=== PATIENT | male | born 1950 | race Caucasian/White ===

== ENCOUNTER → 2016-10-25 | Outpatient (CLI) | payer BC ==
[~2016-10-25] MED LIST: CHOL100027 PO; DOXY40CA PO
== END | disposition home or self-care (01) ==
LOC: C.LABBC 07:31
PROVIDERS: ATTEND Urology
DX: C61 Malignant neoplasm of prostate (principal)

== ENCOUNTER → 2017-05-03 | Outpatient (CLI) | payer BC | END | disposition home or self-care (01) | LOC: C.LABBC 07:38 | PROVIDERS: ATTEND Urology | DX: C61 Malignant neoplasm of prostate (principal) ==

== ENCOUNTER → 2017-10-30 | Outpatient (CLI) | payer OTHER | END | disposition home or self-care (01) | LOC: C.LABBC 07:26 | PROVIDERS: ATTEND Urology | DX: C61 Malignant neoplasm of prostate (principal) ==

== ENCOUNTER 2018-09-11 07:21 | Observation (INO) ==
[2018-09-11] MEDS ORDERED: fentaNYL citrate 100 MCG/2 ML VIAL ONE ×2 (08:41→09:40)
[2018-09-11] MEDS ORDERED: MIDAZOLAM HCL 5 MG/ML 1 ML VIAL ONE ×2 (08:41→09:45)
--- NOTE | 2018-09-11 08:41 | History & Physical Bridge Note ---
Date of Service September 11, 2018 History & Physical Bridge Note I have examined the patient, reviewed the History & Physical and in the interval since the performance of the History & Physical I have noted the following changes of clinical significance: no changes noted. Still in AFL
--- NOTE | 2018-09-11 08:42 | Pre Anesthesia Assessment ---
Date of Service September 11, 2018 Pre Sedation Assessment Vital Signs Temp Pulse Resp BP Pulse Ox 09/11/18 08:25 36.7 C 116 H 16 125/102 H 98 Cardiovascular + tachycardic Respiratory + respiratory effort normal Pre-Sedation Airway Assessment Smoking Status: Never smoker Hx Sleep Apnea: No Hx Difficult Intubation: No Short, Thick Neck: No Thyromental Distance: > or= 3.5 Finger Breadths Oral Cavity: + WNL Mallampati Class: III ASA: ASA3 NPO Status Date of Last Intake of Fluids: 09/10/18 Time of Last Intake of Fluids: 19:00 Date of Last Intake of Solid Food: 09/10/18 Time of Last Intake of Solid Foods: 19:00 Procedure Planning Contraindications for Sedation: none Current Medications Reviewed: Yes Notes The planned sedation has been discussed with the patient. Informed Consent was obtained. I have identified the patient, determined the appropriateness of sedation and have assessed the patient immediately prior to the procedure. All medicine(s) and interventions are by my order.
[2018-09-11] MEDS ORDERED: HEPARIN SOD (PORCINE) 1000 UNIT/ML 10 ML VIAL ONE (08:54)
--- NOTE | 2018-09-11 12:05 | Post Operative Brief Note ---
Cardiology Brief Post Op Date of Surgery September 11, 2018 Pre & Post Diagnosis Operation Date: 09/11/18 09:00 <No data on this case meets the specified criteria> Procedure Ablation of typical right atrial flutter using right femoral vein. Conscious sedation Return to sinus rhythm from atrial flutter No immediate complications Catalytic Converter Operator Saul Jenkins MD Integrated Logistics Programs Director none Estimated Blood Loss 10 Findings Consistent with Post-Op Diagnosis Complications none Disposition Accompanied Patient To Recovery: No Disposition: PCU Overlapping Procedure I was immediately available: during the entire case.
--- NOTE | 2018-09-23 13:49 | Discharge Summary ---
Date of Service September 23, 2018 Admission HPI Patient with persistent atrial flutter Principal Diagnosis Principal Diagnosis Right atrial flutter Discharge Exam The time of discharge patient was ambulatory. Good hemostasis at the access site without bleeding or hematoma Discharge Data Allergies Allergy/AdvReac Type Severity Reaction Status Date / Time magnesium salicylate Allergy Severe rash, Unverified 03/11/13 08:43 short of breath, n/v morphine AdvReac Intermediate nausea Unverified 03/11/13 08:43 Procedures Performed Operation Date: 09/11/18 09:00 Actual Procedures p EPS + Ablation for SVT Flutter - Los Jenkins MD s 3D Mapping (Carto) - Los Jenkins MD s LA Pacing (Add-On) - Los Jenkins MD Hospital Course (1) Atrial flutter: On the day of admission the patient underwent looked physiologic testing and ablation of what appeared to be typical isthmus dependent right atrial flutter. Electro anatomical mapping was also employed. Patient in termination of tachycardia during ablation. Repeat testing was difficult due to small electrograms. The patient rested for a few hours and then was ambulatory. There were no immediate complications Total Time Total Time Spent Total Time Spent (In Minutes): 10 Discharge Plan Discharge Items Patient Disposition: Home - Self-Care Reason For Visit: Atrial Flutter Discharge Diagnosis: atrial flutter Discharge Goals: Therapeutic intervention Activity: Per 'Additional Instructions' section Activity Comment: No lifting over 10 pounds for 5 days. No straining. Lifting: No more than 10 pounds Bathing: No limitations Driving/Machine Use: Resume 1 day after discharge Non-emergency contact: Plant Maintenance Manager Call non-emergency contact if: your symptoms worsen, you have a fever and your wound pain has increased Follow-up/Referrals: Boris Matamoros MD [Primary Care Provider] - Diet: Regular Addtl Provider Instructions: none Prescriptions: Continued CHOLECALCIFEROL (VITAMIN D 1000 UNIT) 1,000 UNIT capsule 1,000 inter.unit PO DAILY Qty: 0 RF: 0 DOXYCYCLINE (ROSACEA) (ORACEA) 40 MG capsule 40 mg PO DAILY Qty: 0 RF: 0 metoprolol succinate 100 mg Tablet Extended Release 24 Hr 100 mg PO DAILY RF: 0 diltiazem HCl 120 mg Capsule,Extended Release 24hr 120 mg PO DAILY RF: 0 Eliquis 5 mg Tablet 5 mg PO BID RF: 0 Nicotinamide Adenine Dinuc. 500 mg PO DAILY RF: 0 Stand-Alone Forms: [facility], [facility] Discharge Orders: Discharge Order (Routine); Ordered 09/11/18 Ordered By: Los Jenkins Admission Data Admit Date/Time: 09/11/18 12:07 Attending Provider: Los Jenkins Admit Provider: Los Jenkins Primary Care Provider: Boris Matamoros Service: Telemetry Other Interventions: Discharge Summary Assessment (RN) Last Done: 09/11/18 17:15 Pending Studies at Discharge: No DC Date/Time DO NOT enter until pt leaves facility: 09/11/18 17:47
--- NOTE | 2018-10-09 14:09 | Procedure Note ---
Procedure Note Date of Service September 11, 2018 Note Procedure performed: Ablation of right atrial flutter, complete electrophysiologic testing including pacing of the left atrium via the coronary sinus, arrhythmia induction use and burst atrial pacing and programmed stimulation, three-dimensional electro anatomical mapping Staff termination clerk: Saul Jenkins MD Indication: Patient is a 59-year-old gentleman with a history of persistent atrial flutter and associated high ventricular rates. Based on the appearance of his arrhythmia he is felt to be a good candidate for a flutter ablation as primary therapy. Procedure in detail: Patient was informed of the risks benefits and alternatives to the intended procedure. He understood and wished to proceed. He is taken to the electrophysiology suite in a fasting state. Conscious sedation was administered per protocol the patient was monitored electrocardiographically throughout today's procedure. The referral areas per day than usual sterile fashion. This area was anesthetized using subcutaneous administration of lidocaine solution. The right femoral vein was subsequently accessed 3 times using modified Selinger technique and sheath were placed over guidewires at this site. She has used felt a passage of the EP catheters to the respective chambers under fluoroscopic guidance. This included coronary sinus and right ventricular catheters. A 3.5 millimeter irrigated radiofrequency ablation catheter was subsequently advanced to the right atrium. Tachycardia sites were mapped in 3D electro anatomical mapping was performed. Once the mechanism of the flutter was identified radiofrequency lesions replaced in linear fashion through the caval tricuspid isthmus until the tachycardia terminated. Repeat attempts at arrhythmia induction were then performed using burst atrial pacing from both the lateral medial portions of the caval tricuspid isthmus. At the conclusion of the procedure the catheters and sheaths were removed. Hemostasis was achieved at the access sites using manual pressure. The patient tolerated procedure well. There were no immediate complications. Findings: The baseline tachycardia cycle length was 276 milliseconds. Electro anatomical mapping confirmed a right atrial flutter. Concealed entrainment was obtained from the medial lateral portions of the caval tricuspid isthmus with short post pacing intervals. Pacing from the distal coronary sinus produced manifest entrainment with a long post pacing interval Ablation: Radiofrequency ablation was carried out of power limited mode. Radiofrequency lesions were placed in a linear fashion through the caval tricuspid isthmus sense of a tachycardia terminated. Repeat electro anatomical mapping and pacing performed in order to confirm bidirectional block through the caval tricuspid isthmus. Post ablation intervals: Cycling nature 946 milliseconds Cycling the ventricle 912 milliseconds WI interval 142 milliseconds QRS duration 112 milliseconds QT interval 344 milliseconds with a corrected QT interval of 360 AH interval 40 milliseconds HV interval 38 [address] [place] occurred at 360 milliseconds Impression: Successful creation of bidirectional block through the caval tricuspid isthmus rendering typical right atrial flutter noninducible Coding
== END 2018-09-11 17:47 | disposition home or self-care (01) ==
LOC: ASU 07:21 → 2S 07:21